=== PATIENT | female | born 1965 | race Caucasian/White ===

== ENCOUNTER 2023-01-03 15:42 | Emergency (ER) | payer MEDICAID ==
[~2023-01-03] VITALS: Ht 157.5 cm; Wt 87.5 kg
[2023-01-03 15:49] VITALS: BP 132/73; PULSE 107; RESP 20; TEMP 97.2; O2SAT 92
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
--- NOTE | 2023-01-03 16:25 | NUR ---
MD HAND AT BEDSIDE FOR EVALUATION
[2023-01-03] MEDS ORDERED: ACETAMINOPHEN EXTRA STRENGTH 500 MG TAB PO ONE (16:35)
[2023-01-03] MEDS ORDERED: ONDANSETRON 4 MG ODT PO ONE (16:35)
--- NOTE | 2023-01-03 17:02 | NUR ---
pt swabbed for covid(mihir) and flu. walked and handed to lab
[2023-01-03] MEDS ORDERED: PROM118S5 PO (17:52)
[2023-01-03] MEDS ORDERED: ONDA-188 PO (17:52)
[2023-01-03 18:05] VITALS: BP 128/73; PULSE 79; RESP 20; TEMP 97.8; O2SAT 99
--- NOTE | 2023-01-03 18:05 | NUR ---
Patient discharged with v/s stable. Written and verbal after care instructions FOR VIRAL ILLNESS given and explained. Patient alert, oriented and verbalized understanding of instructions. Ambulatory with steady gait. All questions addressed prior to discharge. ID band removed. Patient advised to follow up with PMD. Rx of ZOFRAN ODT AND PROMETHAZINE given. Opportunity to ask questions provided and answered. WORK NOTE PROVIDED
--- NOTE | 2023-01-03 18:41 | NUR ---
The patient's care was reviewed and supervised by [facility], RN.
== END 2023-01-03 18:05 | disposition home or self-care (01) ==
LOC: MED 15:42
DX: B34.9 Viral infection, unspecified (principal); I10 Essential (primary) hypertension; Z90.49 Acquired absence of other specified parts of digestive tract; Z79.899 Other long term (current) drug therapy; Z98.890 Other specified postprocedural states; Z20.822 Contact with and (suspected) exposure to COVID-19
CPT/HCPCS: 71045; 81025; 87426; 87804; 99284; Q0162